=== PATIENT | female | born 1965 | race Caucasian/White ===

== ENCOUNTER → 2016-10-30 | Day surgery (SDC) | payer OTHER ==
[~2016-10-30] MED LIST: KETO10 PO; LACTATED RINGER'S 1,000 ML BAG IV ONE; LEVO25TA4 PO; OXYC-360 PO; OYST500T77 PO; PROPOFOL 500 MG/50 ML BTL IV ONE; TAB-TAB PO
--- NOTE | 2016-10-30 12:37 | GIPROC ---
[facility] [address] [facility], [address] COLONOSCOPY PROCEDURE REPORT EXAM DATE: 10/30/2016 PATIENT NAME: Cheryl Sanches MR #: [id number] BIRTHDATE: 1965 ENDOSCOPIST: Osbaldo Ocampo MD ORDER #: [id number] CAPACITOR ASSEMBLER: Sarah Lin STATUS: outpatient INDICATIONS: The patient is a 51 yr old female here for a colonoscopy due to average risk patient for colon cancer PROCEDURE PERFORMED: Colonoscopy, screening MEDICATIONS: None, Per Anesthesia, None, and Per Anesthesia. PREP QUALITY: excellent ESTIMATED BLOOD LOSS: None CONSENT: The patient understands the risks and benefits of the procedure and understands that these risks include, but are not limited to: sedation, allergic reaction, infection, perforation and/or bleeding. Alternative means of evaluation and treatment include, among others: physical exam, x-rays, and/or surgical intervention. The patient elects to proceed with this endoscopic procedure. medical equipment was checked for proper function. Hand hygiene and appropriate measures for infection prevention was taken. After the risks, benefits and alternatives of the procedure were thoroughly explained, Informed consent was verified, confirmed and timeout was successfully executed by the treatment team. A digital exam revealed no abnormalities of the rectum The EC-3490Li ([id number]) endoscope was introduced through the anus and advanced to the cecum, which was identified by both the appendix and ileocecal valve. The instrument was then slowly withdrawn as the colon was fully examined. COLON FINDINGS: The colonic mucosa appeared normal. Retroflexed views revealed no abnormalities The scope was then completely withdrawn from the patient and the procedure terminated. PROCEDURE WITHDRAWAL TIME:9.4minutes ADVERSE EVENTS: There were no complications. IMPRESSIONS: 1. The colonic mucosa appeared normal 2. Retroflexed views revealed no abnormalities 3. Revealed no abnormalities of the rectum RECOMMENDATIONS: 1. High fiber diet 2. Yearly hemoccult 3. Follow-up: GI Clinic PRN RECALL: Return 10 years Colonoscopy Osbaldo Ocampo MD eSigned: Osbaldo Ocampo MD 10/30/2016 12:37 PM cc: Suhail Rasheed M.D and Deneen Mcconnell [facility]
--- NOTE | 2016-10-30 12:42 | GIPROC ---
[facility] [address] [facility], [address] EGD PROCEDURE REPORT EXAM DATE: 10/30/2016 PATIENT NAME: Cheryl Sanches MR #: [id number] BIRTHDATE: 1965 ATTENDING: Osbaldo Ocampo MD ORDER #: [id number] GLASS INSTALLER TECHNICIAN: Sarah Lin STATUS: outpatient INDICATIONS: The patient is a 51 yr old female here for an EGD due to dysphagia PROCEDURE PERFORMED: EGD w/ biopsy MEDICATIONS: None, Per Anesthesia, None, and Per Anesthesia. TOPICAL ANESTHETIC: CONSENT: The patient understands the risks and benefits of the procedure and understands that these risks include, but are not limited to: sedation, allergic reaction, infection, perforation and/or bleeding. Alternative means of evaluation and treatment include, among others: physical exam, x-rays, and/or surgical intervention. The patient elects to proceed with this endoscopic procedure. medical equipment was checked for proper function. Hand hygiene and appropriate measures for infection prevention was taken. After the risks, benefits and alternatives of the procedure were thoroughly explained, Informed consent was verified, confirmed and timeout was successfully executed by the treatment team. The patient was anesthetized with topical anesthesia and the EC-3490Li ([id number]) endoscope was introduced through the mouth and advanced to the second portion of the duodenum. Retroflexed views revealed no abnormalities The gastroscope was then slowly withdrawn and removed. ESOPHAGUS: The mucosa of the esophagus appeared normal. The stricture was dilated using a 17mm (51Fr) savary dilator over guidewire. Following this dilation, there was no change in the appearance of the stricture. Multiple biopsies were performed. The endoscopy was otherwise normal. ADVERSE EVENTS: There were no complications. IMPRESSIONS: 1. The esophagus appeared normal; The stricture was dilated using a 17mm (51Fr) savary dilator over guidewire.; Following this dilation, there was no change in the appearance of the stricture 2. Normal endoscopy otherwise 3. Retroflexed views revealed no abnormalities RECOMMENDATIONS: 1. Await biopsy results. Biopsy results will not be ready for 7-10 days. If you don't hear from us in two weeks, call our office for biopsy results. 2. Follow-up: GI clinic 4 week(s) PATIENT CONDITION: stable DISPOSITION: Home REPEAT EXAM: Osbaldo Ocampo MD eSigned: Osbaldo Ocampo MD 10/30/2016 12:42 PM cc: Suhail Mcconnell [facility] PATIENT NAME: Cheryl Sanches MR#: [id number]
== END | disposition home or self-care (01) ==
LOC: ESDC 10:31
PROVIDERS: ATTEND Internal Medicine Gastroenterology
DX: Z12.11 Encounter for screening for malignant neoplasm of colon (principal); R13.10 Dysphagia, unspecified; K22.2 Esophageal obstruction
CPT/HCPCS: 00740; 00810; 43239; 43248; 45378; 88305; J3010; J7120